=== PATIENT | male | born 1955 | race African-American/Black ===

== ENCOUNTER 2020-02-20 18:32 | Inpatient (IN) | payer MEDICAID, OTHER ==
[~2020-02-20] VITALS: Ht 188 cm; Wt 61.7 kg
[~2020-02-20 18:32] MED LIST: CALC-15 PO; FERR-89 PO; FLUP5 PO; HALO5TAB2 PO; HALOD100I IM; OLAN10TA3 PO; TRAZ-257 PO
[2020-02-20] MEDS ORDERED: ASPI-556 PO (20:50)
[2020-02-20] MEDS ORDERED: ATOR20TA86 PO (20:50)
[2020-02-20] MEDS ORDERED: CHLO50I IM (20:50)
[2020-02-20] MEDS ORDERED: TRAZ150 PO (20:50)
[2020-02-20] MEDS ORDERED: HALO10 PO (20:50)
[2020-02-20] MEDS ORDERED: BENZ0.5T44 PO (20:50)
[2020-02-20] MEDS ORDERED: CARV3 PO (20:50)
[2020-02-20 21:17] LABS: BASOPHILS % (AUTO) 1.1 % (0.0-2.0); EOSINOPHILS % (AUTO) 10.9 % (1.0-6.0); HEMATOCRIT 39.3 % (41-53); LYMPHOCYTES # (AUTO) 2.1 K/uL (1.0-4.8); LYMPHOCYTES % (AUTO) 39.4 % (22.0-44.0); MEAN CORPUSCULAR HEMOGLOBIN 28.2 pg (26.0-34.0); MEAN CORPUSCULAR HGB CONC 33.2 G/dL (31.0-37.0); MEAN CORPUSCULAR VOLUME 85 fL (80-100); MONOCYTES # (AUTO) 0.5 K/uL (0.1-1.0); MONOCYTES % (AUTO) 8.8 % (2.0-9.0); NEUTROPHILS # (AUTO) 2.2 K/uL (1.8-7.7); NEUTROPHILS % (AUTO) 39.8 % (40.0-70.0); PLATELET COUNT (AUTO) 194 K/uL (150-450); RED BLOOD CELL COUNT(AUTO) 4.61 MIL/uL (4.50-5.90); RED CELL DISTRIBUTION WIDTH 15.2 % (11.5-14.5)
[2020-02-20 21:51] LABS: ANION GAP 7 mmol/L (8-16); CARBON DIOXIDE 30 mmol/L (22-29); CHLORIDE 103 mmol/L (98-107); CREATININE 1.05 mg/dL (0.60-1.30); GLOMERULAR FILTR. RATE CALC > 60 mL/min (>60); GLUCOSE,RANDOM 90 mg/dL (70-110); POTASSIUM 3.6 mmol/L (3.5-5.1); SODIUM SERUM 140 mmol/L (136-145); UREA NITROGEN, BLOOD 10 mg/dL (7-18)
[2020-02-20 21:55] LABS: ALANINE AMINOTRANSFERASE 33 U/L (12-78); ALKALINE PHOSPHATASE 96 U/L (46-116); ASPARTATE AMINOTRANSFERASE 26 U/L (15-37); BILIRUBIN,TOTAL 0.6 mg/dL (0.1-1.0); TOTAL PROTEIN, SERUM 7.5 g/dL (6.4-8.2)
[2020-02-20] MEDS ORDERED: HALOPERIDOL 5 MG TABLET PO PRN (23:00)
[2020-02-20 23:38] LABS: AMPHET/METH SCREEN,URINE NEGATIVE (NEGATIVE); BARBITURATE SCREEN, URINE NEGATIVE (NEGATIVE); BENZODIAZEPINES SCREEN,URINE NEGATIVE (NEGATIVE); CANNABINOID SCREEN,URINE NEGATIVE (NEGATIVE); COCAINE SCREEN,URINE NEGATIVE (NEGATIVE); METHADONE SCREEN, URINE NEGATIVE (NEGATIVE); OPIATE SCREEN,URINE NEGATIVE (NEGATIVE)
[2020-02-20 23:40] LABS: PHENCYCLIDINE SCREEN,URINE NEGATIVE (NEGATIVE)
[2020-02-21 03:07] VITALS: BP 137/68
[2020-02-21] MEDS ORDERED: PNEUMOCOCCAL VACCINE POLYVALENT 0.5 ML VIAL [PPSV23] IM ONE (03:30)
[2020-02-21] MEDS ORDERED: MAG HYDROX/AL HYDROX/SIMETH ES 30 ML SUSPENSION UDCUP PO PRN (07:30)
[2020-02-21] MEDS ORDERED: DOCUSATE SODIUM 100 MG CAPSULE PO PRN (07:30)
[2020-02-21] MEDS ORDERED: NICOTINE 14 MG/24 HOUR PATCH TD PRN (07:30)
[2020-02-21] MEDS ORDERED: GuaiFENesin/D-METHORPHAN [SUGAR-FREE] 200-20MG/10 ML SYRUP UDCUP PO PRN (07:30)
[2020-02-21] MEDS ORDERED: PETROLATUM,WHITE 28 GM JELLY TP PRN (07:30)
[2020-02-21] MEDS ORDERED: CloNIDine HCL 0.1 MG TABLET PO PRN (07:30)
[2020-02-21] MEDS ORDERED: LOPERAMIDE HCL 2 MG CAPSULE PO PRN (07:30)
[2020-02-21] MEDS ORDERED: ALBUTEROL SULFATE HFA 90 MCG/PUFF 8 GM INHALER IH PRN (07:30)
[2020-02-21] MEDS ORDERED: IBUPROFEN 400 MG TABLET PO PRN (07:30)
[2020-02-21] MEDS ORDERED: ACETAMINOPHEN 325 MG TABLET PO PRN (07:30)
[2020-02-21] MEDS ORDERED: ONDANSETRON HCL 4 MG TABLET PO PRN (07:30)
[2020-02-21] MEDS ORDERED: MAGNESIUM HYDROXIDE SUSPENSION 30 ML UDCUP PO PRN (07:30)
[2020-02-21 08:13] VITALS: BP 116/65
[2020-02-21 08:53] LABS: HEMOGLOBIN A1C 5.2 % (3.8-5.6)
[2020-02-21 09:13] LABS: CHOL/HDL RATIO 1.4 (4.2-7.3); THYROID STIMULATING HORMONE 1.39 uIU/mL (0.36-3.74)
[2020-02-21] MEDS: ATORVASTATIN CALCIUM 20 MG TABLET PO SCH (10:29)
[2020-02-21] MEDS: ASPIRIN 81 MG EC TABLET PO SCH (10:30)
[2020-02-21] MEDS: CARVEDILOL 3.125 MG TABLET PO SCH ×2 (10:30→16:56)
[2020-02-21 16:18] VITALS: BP 123/67
[2020-02-21] MEDS: LURASIDONE HCL 40 MG TABLET PO SCH (16:56)
[2020-02-21] MEDS: TraZODone HCL 150 MG TABLET PO SCH (20:57)
[2020-02-22 02:03] VITALS: BP 126/73
[2020-02-22] MEDS: LURASIDONE HCL 40 MG TABLET PO SCH ×2 (06:32→16:25)
[2020-02-22 08:29] VITALS: BP 120/62
[2020-02-22] MEDS: ASPIRIN 81 MG EC TABLET PO SCH (08:34)
[2020-02-22] MEDS: ATORVASTATIN CALCIUM 20 MG TABLET PO SCH (08:34)
[2020-02-22] MEDS: CARVEDILOL 3.125 MG TABLET PO SCH ×2 (08:35→16:25)
[2020-02-22] MEDS: LORazepam 2 MG TABLET PO PRN ×2 (16:22→20:25)
[2020-02-22 17:22] VITALS: BP 118/77
[2020-02-22] MEDS: ZOLPIDEM TARTRATE 10 MG TABLET PO PRN (20:14)
[2020-02-22] MEDS: TraZODone HCL 150 MG TABLET PO SCH (20:14)
[2020-02-23 03:48] VITALS: BP 111/66
[2020-02-23] MEDS: LURASIDONE HCL 40 MG TABLET PO SCH ×2 (06:25→16:16)
[2020-02-23 08:16] VITALS: BP 112/67
[2020-02-23] MEDS: ATORVASTATIN CALCIUM 20 MG TABLET PO SCH (08:58)
[2020-02-23] MEDS: ASPIRIN 81 MG EC TABLET PO SCH (08:58)
[2020-02-23] MEDS: CARVEDILOL 3.125 MG TABLET PO SCH ×2 (09:00→16:16)
[2020-02-23 12:44] VITALS: BP 137/72
[2020-02-23 17:37] VITALS: BP 110/79
[2020-02-23] MEDS: TraZODone HCL 150 MG TABLET PO SCH (20:29)
[2020-02-24 05:28] VITALS: BP 118/80
[2020-02-24] MEDS: LURASIDONE HCL 40 MG TABLET PO SCH ×2 (06:25→16:24)
[2020-02-24 08:16] VITALS: BP 122/76
[2020-02-24] MEDS: ATORVASTATIN CALCIUM 20 MG TABLET PO SCH (09:42)
[2020-02-24] MEDS: CARVEDILOL 3.125 MG TABLET PO SCH ×2 (09:42→16:24)
[2020-02-24] MEDS: ASPIRIN 81 MG EC TABLET PO SCH (09:42)
[2020-02-24 16:21] VITALS: BP 112/68
[2020-02-24] MEDS: TraZODone HCL 150 MG TABLET PO SCH (20:33)
[2020-02-25 05:04] VITALS: BP 113/65
[2020-02-25] MEDS: LURASIDONE HCL 40 MG TABLET PO SCH ×2 (06:16→18:20)
[2020-02-25 08:25] VITALS: BP 105/65
[2020-02-25] MEDS: CARVEDILOL 3.125 MG TABLET PO SCH (08:50)
[2020-02-25] MEDS: ATORVASTATIN CALCIUM 20 MG TABLET PO SCH (08:51)
[2020-02-25] MEDS: ASPIRIN 81 MG EC TABLET PO SCH (08:51)
[2020-02-25] MEDS ORDERED: DiphenhydrAMINE HCL 50 MG/ML VIAL IM ONE (12:00)
[2020-02-25] MEDS ORDERED: BENZTROPINE MESYLATE 1 MG/ML 2 ML VIAL IM ONE (12:00)
[2020-02-25 16:22] VITALS: BP 132/61
[2020-02-25] MEDS: BENZTROPINE MESYLATE 1 MG TABLET PO SCH (18:20)
[2020-02-25] MEDS: TraZODone HCL 150 MG TABLET PO SCH (21:18)
[2020-02-25] MEDS: ZOLPIDEM TARTRATE 10 MG TABLET PO PRN (21:18)
[2020-02-26 01:37] VITALS: BP 110/65
[2020-02-26] MEDS: LURASIDONE HCL 40 MG TABLET PO SCH ×2 (06:11→16:00)
[2020-02-26 08:07] VITALS: BP 134/55
[2020-02-26] MEDS: ATORVASTATIN CALCIUM 20 MG TABLET PO SCH (09:13)
[2020-02-26] MEDS: CARVEDILOL 3.125 MG TABLET PO SCH (09:13)
[2020-02-26] MEDS: ASPIRIN 81 MG EC TABLET PO SCH (09:14)
[2020-02-26] MEDS: BENZTROPINE MESYLATE 1 MG TABLET PO SCH ×2 (09:14→16:00)
[2020-02-26 16:00] VITALS: BP 127/74
[2020-02-26] MEDS: TraZODone HCL 150 MG TABLET PO SCH (20:07)
[2020-02-27 05:26] VITALS: BP 115/62
[2020-02-27] MEDS: LURASIDONE HCL 40 MG TABLET PO SCH ×2 (06:31→17:39)
[2020-02-27 08:02] VITALS: BP 100/68
[2020-02-27] MEDS: ASPIRIN 81 MG EC TABLET PO SCH (08:08)
[2020-02-27] MEDS: BENZTROPINE MESYLATE 1 MG TABLET PO SCH ×2 (08:08→16:01)
[2020-02-27] MEDS: ATORVASTATIN CALCIUM 20 MG TABLET PO SCH (08:08)
[2020-02-27] MEDS: MULTIVITAMINS WITH MINERALS, THERAPEUTIC TABLET PO SCH (08:08)
[2020-02-27] MEDS: CARVEDILOL 3.125 MG TABLET PO SCH (08:09)
[2020-02-27 15:51] VITALS: BP 132/86
[2020-02-27 16:00] VITALS: BP 132/86
[2020-02-27] MEDS: LORazepam 2 MG TABLET PO PRN (16:01)
[2020-02-27] MEDS: TraZODone HCL 150 MG TABLET PO SCH (20:17)
[2020-02-28 01:18] VITALS: BP 88/59
[2020-02-28] MEDS: LURASIDONE HCL 40 MG TABLET PO SCH ×2 (06:41→16:32)
[2020-02-28 08:01] VITALS: BP 106/69
[2020-02-28] MEDS: CARVEDILOL 3.125 MG TABLET PO SCH (08:19)
[2020-02-28] MEDS: ATORVASTATIN CALCIUM 20 MG TABLET PO SCH (08:19)
[2020-02-28] MEDS: MULTIVITAMINS WITH MINERALS, THERAPEUTIC TABLET PO SCH (08:19)
[2020-02-28] MEDS: ASPIRIN 81 MG EC TABLET PO SCH (08:19)
[2020-02-28] MEDS: BENZTROPINE MESYLATE 1 MG TABLET PO SCH ×2 (08:19→16:32)
[2020-02-28 16:53] VITALS: BP 130/69
[2020-02-28] MEDS: ZOLPIDEM TARTRATE 10 MG TABLET PO PRN (20:26)
[2020-02-28] MEDS: TraZODone HCL 150 MG TABLET PO SCH (20:26)
[2020-02-29 05:10] VITALS: BP_SYST 100; BP_SYST 124; BP_DIAS 74
[2020-02-29] MEDS: LURASIDONE HCL 40 MG TABLET PO SCH ×2 (06:22→16:01)
[2020-02-29 08:20] VITALS: BP 101/66
[2020-02-29] MEDS: ASPIRIN 81 MG EC TABLET PO SCH (08:28)
[2020-02-29] MEDS: ATORVASTATIN CALCIUM 20 MG TABLET PO SCH (08:28)
[2020-02-29] MEDS: BENZTROPINE MESYLATE 1 MG TABLET PO SCH ×2 (08:29→16:01)
[2020-02-29] MEDS: CARVEDILOL 3.125 MG TABLET PO SCH (08:29)
[2020-02-29] MEDS: MULTIVITAMINS WITH MINERALS, THERAPEUTIC TABLET PO SCH (08:29)
[2020-02-29 16:04] VITALS: BP 122/71
[2020-02-29] MEDS: TraZODone HCL 150 MG TABLET PO SCH (20:27)
[2020-03-01] VITALS: BP 124/68
[2020-03-01] MEDS: LURASIDONE HCL 40 MG TABLET PO SCH ×2 (06:21→16:52)
[2020-03-01] MEDS: CARVEDILOL 3.125 MG TABLET PO SCH (08:31)
[2020-03-01] MEDS: ATORVASTATIN CALCIUM 20 MG TABLET PO SCH (08:32)
[2020-03-01] MEDS: BENZTROPINE MESYLATE 1 MG TABLET PO SCH ×2 (08:32→16:52)
[2020-03-01] MEDS: ASPIRIN 81 MG EC TABLET PO SCH (08:32)
[2020-03-01] MEDS: MULTIVITAMINS WITH MINERALS, THERAPEUTIC TABLET PO SCH (08:32)
[2020-03-01 09:00] VITALS: BP 104/66
[2020-03-01 16:01] VITALS: BP 118/72
[2020-03-01] MEDS: TraZODone HCL 150 MG TABLET PO SCH (21:56)
[2020-03-02 05:05] VITALS: BP 124/82
[2020-03-02] MEDS: LURASIDONE HCL 40 MG TABLET PO SCH ×2 (06:14→16:10)
[2020-03-02] MEDS: MULTIVITAMINS WITH MINERALS, THERAPEUTIC TABLET PO SCH (08:01)
[2020-03-02] MEDS: ASPIRIN 81 MG EC TABLET PO SCH (08:01)
[2020-03-02] MEDS: CARVEDILOL 3.125 MG TABLET PO SCH (08:01)
[2020-03-02] MEDS: ATORVASTATIN CALCIUM 20 MG TABLET PO SCH (08:01)
[2020-03-02] MEDS: BENZTROPINE MESYLATE 1 MG TABLET PO SCH ×2 (08:01→16:10)
[2020-03-02 08:10] VITALS: BP 100/69
[2020-03-02 16:01] VITALS: BP 123/69
[2020-03-02] MEDS: LORazepam 2 MG TABLET PO PRN (16:10)
[2020-03-02] MEDS: TraZODone HCL 150 MG TABLET PO SCH (20:43)
[2020-03-03 06:12] VITALS: BP 120/74
[2020-03-03] MEDS: LURASIDONE HCL 40 MG TABLET PO SCH ×2 (06:48→16:00)
[2020-03-03 08:03] VITALS: BP 112/66
[2020-03-03] MEDS: BENZTROPINE MESYLATE 1 MG TABLET PO SCH ×2 (08:24→16:00)
[2020-03-03] MEDS: CARVEDILOL 3.125 MG TABLET PO SCH (08:24)
[2020-03-03] MEDS: MULTIVITAMINS WITH MINERALS, THERAPEUTIC TABLET PO SCH (08:24)
[2020-03-03] MEDS: ATORVASTATIN CALCIUM 20 MG TABLET PO SCH (08:24)
[2020-03-03] MEDS: ASPIRIN 81 MG EC TABLET PO SCH (08:24)
[2020-03-03 15:57] VITALS: BP 117/67
[2020-03-03 16:01] VITALS: BP 117/67
[2020-03-03] MEDS: LORazepam 2 MG TABLET PO PRN (16:22)
[2020-03-03 17:42] VITALS: BP 117/67
[2020-03-03] MEDS: TraZODone HCL 150 MG TABLET PO SCH (20:57)
[2020-03-03] MEDS: ZOLPIDEM TARTRATE 10 MG TABLET PO PRN (20:57)
[2020-03-04] MEDS: LURASIDONE HCL 40 MG TABLET PO SCH ×2 (06:48→16:02)
[2020-03-04 06:53] VITALS: BP 112/68
[2020-03-04 08:18] VITALS: BP 95/72
[2020-03-04] MEDS: MULTIVITAMINS WITH MINERALS, THERAPEUTIC TABLET PO SCH (08:21)
[2020-03-04] MEDS: ATORVASTATIN CALCIUM 20 MG TABLET PO SCH (08:22)
[2020-03-04] MEDS: BENZTROPINE MESYLATE 1 MG TABLET PO SCH ×2 (08:22→16:02)
[2020-03-04] MEDS: ASPIRIN 81 MG EC TABLET PO SCH (08:22)
[2020-03-04] MEDS: CARVEDILOL 3.125 MG TABLET PO SCH (08:23)
[2020-03-04 16:00] VITALS: BP 117/73
[2020-03-04] MEDS: LORazepam 2 MG TABLET PO PRN (16:02)
[2020-03-04] MEDS: TraZODone HCL 150 MG TABLET PO SCH (20:25)
[2020-03-05 03:15] VITALS: BP 135/90
[2020-03-05] MEDS: LORazepam 2 MG TABLET PO PRN ×2 (03:52→15:57)
[2020-03-05] MEDS: LURASIDONE HCL 40 MG TABLET PO SCH ×2 (07:05→16:05)
[2020-03-05 08:00] VITALS: BP 115/62
[2020-03-05] MEDS: ATORVASTATIN CALCIUM 20 MG TABLET PO SCH (08:32)
[2020-03-05] MEDS: ASPIRIN 81 MG EC TABLET PO SCH (08:32)
[2020-03-05] MEDS: MULTIVITAMINS WITH MINERALS, THERAPEUTIC TABLET PO SCH (08:33)
[2020-03-05] MEDS: BENZTROPINE MESYLATE 1 MG TABLET PO SCH ×2 (08:33→16:05)
[2020-03-05] MEDS: CARVEDILOL 3.125 MG TABLET PO SCH (09:46)
[2020-03-05 14:15] VITALS: BP 115/62
[2020-03-05 16:00] VITALS: BP 101/81
[2020-03-05] MEDS: TraZODone HCL 150 MG TABLET PO SCH (20:22)
[2020-03-06 06:10] VITALS: BP 133/73
[2020-03-06] MEDS: LURASIDONE HCL 40 MG TABLET PO SCH ×2 (06:25→16:20)
[2020-03-06 08:07] VITALS: BP 134/78
[2020-03-06] MEDS: BENZTROPINE MESYLATE 1 MG TABLET PO SCH ×2 (08:42→16:20)
[2020-03-06] MEDS: CARVEDILOL 3.125 MG TABLET PO SCH (08:43)
[2020-03-06] MEDS: ATORVASTATIN CALCIUM 20 MG TABLET PO SCH (08:43)
[2020-03-06] MEDS: ASPIRIN 81 MG EC TABLET PO SCH (08:43)
[2020-03-06] MEDS: MULTIVITAMINS WITH MINERALS, THERAPEUTIC TABLET PO SCH (08:43)
[2020-03-06 16:00] VITALS: BP 127/69
[2020-03-06] MEDS: LORazepam 2 MG TABLET PO PRN (16:20)
[2020-03-06] MEDS: TraZODone HCL 150 MG TABLET PO SCH (20:43)
[2020-03-07] MEDS: LURASIDONE HCL 40 MG TABLET PO SCH ×2 (06:25→16:19)
[2020-03-07 06:57] VITALS: BP 122/84
[2020-03-07 08:14] VITALS: BP 104/54
[2020-03-07] MEDS: MULTIVITAMINS WITH MINERALS, THERAPEUTIC TABLET PO SCH (08:42)
[2020-03-07] MEDS: BENZTROPINE MESYLATE 1 MG TABLET PO SCH ×2 (08:42→16:19)
[2020-03-07] MEDS: ATORVASTATIN CALCIUM 20 MG TABLET PO SCH (08:42)
[2020-03-07] MEDS: ASPIRIN 81 MG EC TABLET PO SCH (08:42)
[2020-03-07] MEDS: CARVEDILOL 3.125 MG TABLET PO SCH (09:00)
[2020-03-07 09:22] LABS: APPEARANCE,URINE CLEAR (CLEAR); BILIRUBIN,URINE NEGATIVE (NEGATIVE); GLUCOSE, URINE (UA) NEGATIVE (NEGATIVE); KETONES,URINE NEGATIVE (NEGATIVE); LEUKOCYTE ESTERASE ,URINE NEGATIVE (NEGATIVE); NITRATE,URINE NEGATIVE (NEGATIVE); OCCULT BLOOD,URINE NEGATIVE (NEGATIVE); PH,URINE 7.5 (5.0-8.0); PROTEIN,URINE NEGATIVE (NEGATIVE)
[2020-03-07 09:54] LABS: BACTERIA,URINE None Seen /HPF (None Seen); RBC,URINE None Seen /HPF (0-2); WBC,URINE None Seen /HPF (0-5)
[2020-03-07 09:55] LABS: CALCIUM OXALATE CRYSTALS,UR Few /LPF (None Seen); SQUAMOUS EPITHELIAL CELL,UR Few /LPF (None Seen)
[2020-03-07] MEDS: LORazepam 2 MG TABLET PO PRN (16:19)
[2020-03-07 16:46] VITALS: BP_SYST 102; BP_SYST 154; BP_DIAS 58; BP_DIAS 74
[2020-03-07] MEDS: TraZODone HCL 150 MG TABLET PO SCH (20:28)
[2020-03-08 06:17] VITALS: BP 136/75
[2020-03-08] MEDS: LURASIDONE HCL 40 MG TABLET PO SCH ×2 (07:05→16:58)
[2020-03-08] MEDS: BENZTROPINE MESYLATE 1 MG TABLET PO SCH ×2 (08:00→16:58)
[2020-03-08] MEDS: MULTIVITAMINS WITH MINERALS, THERAPEUTIC TABLET PO SCH (08:00)
[2020-03-08] MEDS: ATORVASTATIN CALCIUM 20 MG TABLET PO SCH (08:01)
[2020-03-08] MEDS: CARVEDILOL 3.125 MG TABLET PO SCH (08:01)
[2020-03-08] MEDS: ASPIRIN 81 MG EC TABLET PO SCH (08:01)
[2020-03-08 08:22] VITALS: BP 132/84
[2020-03-08 16:01] VITALS: BP 116/71
[2020-03-08] MEDS: TraZODone HCL 150 MG TABLET PO SCH (20:06)
[2020-03-09] MEDS: LORazepam 2 MG TABLET PO PRN
[2020-03-09] MEDS: ZOLPIDEM TARTRATE 10 MG TABLET PO PRN
[2020-03-09 00:02] VITALS: BP 112/68
[2020-03-09] MEDS: LURASIDONE HCL 40 MG TABLET PO SCH (06:24)
[2020-03-09 08:09] VITALS: BP 118/72
[2020-03-09] MEDS: MULTIVITAMINS WITH MINERALS, THERAPEUTIC TABLET PO SCH (09:11)
[2020-03-09] MEDS: CARVEDILOL 3.125 MG TABLET PO SCH (09:11)
[2020-03-09] MEDS: ATORVASTATIN CALCIUM 20 MG TABLET PO SCH (09:11)
[2020-03-09] MEDS: ASPIRIN 81 MG EC TABLET PO SCH (09:11)
[2020-03-09] MEDS: BENZTROPINE MESYLATE 1 MG TABLET PO SCH (09:11)
[2020-03-09] MEDS ORDERED: LURA40TA2 PO ×2 (10:10→10:31)
[2020-03-09] MEDS ORDERED: BENZ1TAB10 PO (10:31)
== END 2020-03-09 16:35 | disposition home or self-care (01) | DRG 885 ==
LOC: EMS 18:32 → B3A 22:49
PROVIDERS: ADMIT Psychiatry & Neurology Child & Adolescent Psychiatry; ATTEND Psychiatry & Neurology Child & Adolescent Psychiatry
DX: F20.0 Paranoid schizophrenia (principal); D64.9 Anemia, unspecified; E78.00 Pure hypercholesterolemia, unspecified; E78.5 Hyperlipidemia, unspecified; R30.0 Dysuria; F32.9 Major depressive disorder, single episode, unspecified; I10 Essential (primary) hypertension; Z59.0 Homelessness; Z79.899 Other long term (current) drug therapy; Z79.01 Long term (current) use of anticoagulants; Z79.1 Long term (current) use of non-steroidal anti-inflammatories (NSAID); Z79.82 Long term (current) use of aspirin; Z79.52 Long term (current) use of systemic steroids
CPT/HCPCS: 83036; 84443; 90732; G0480; J0515; J1200